=== PATIENT | female | born 1960 | race Hispanic/Latino ===

== ENCOUNTER 2022-12-01 05:30 | Observation (INO) | payer OTHER ==
[2022-11-26 12:36] LABS: BASOPHILS % (AUTO) 1.1 % (0.0-5.0); EOSINOPHILS % (AUTO) 0.8 % (0.0-8.0); HEMATOCRIT 38.1 % (36-48); LYMPHOCYTES % (AUTO) 23.7 % (21.0-51.0); MEAN CORPUSCULAR HEMOGLOBIN 31.1 pg (27.0-33.0); MEAN CORPUSCULAR HGB CONC 33.6 g/dL (32.0-36.0); MEAN CORPUSCULAR VOLUME 92.5 fL (79-99); MONOCYTES % (AUTO) 4.6 % (3.0-13.0); NEUTROPHILS % (AUTO) 69.5 % (40.0-77.0); PLATELET COUNT (AUTO) 224 K/uL (130-400); RED BLOOD CELL COUNT(AUTO) 4.12 MIL/uL (4.00-5.50); RED CELL DISTRIBUTION WIDTH 13.3 % (11.0-15.5); WHITE BLOOD COUNT (AUTO) 3.7 K/uL (4.8-10.8)
[2022-11-26 12:56] LABS: APPEARANCE,URINE CLEAR (CLEAR); BILIRUBIN,URINE NEGATIVE (NEGATIVE); COLOR,URINE COLORLESS (YELLOW); GLUCOSE, URINE (UA) NEGATIVE (NEGATIVE); KETONES,URINE NEGATIVE (NEGATIVE); LEUKOCYTE ESTERASE ,URINE NEGATIVE Leu/uL (NEGATIVE); NITRATE,URINE NEGATIVE (NEGATIVE); PROTEIN,URINE NEGATIVE (NEGATIVE); UROBILINOGEN,URINE 0.2 mg/dL (0.2-1.0)
[2022-11-26 13:06] LABS: BACTERIA,URINE RARE /HPF (None Seen); RBC,URINE 0-1 /HPF (0-1); SQUAMOUS EPITHELIAL CELL,UR RARE /HPF (0-2)
[2022-11-30 09:19] VITALS: BP 143/72
[~2022-12-01] VITALS: Ht 152.4 cm; Wt 62.8 kg
[2022-12-01] VITALS (26 sets, daily range): BP systolic 106–138; BP diastolic 55–75
[~2022-12-01 05:30] MED LIST: PRAV10TA39 PO
[2022-12-01] MEDS ORDERED: 0.9%NACL 1000ML 1,000 ML IV ONE (06:29)
[2022-12-01] MEDS ORDERED: CEFAZOLIN SODIUM 2 GM VIAL ONE (06:29)
[2022-12-01] MEDS ORDERED: FENTANYL CITRATE PF 50 MCG/1 ML 5ML AMP IV ONE (07:45)
[2022-12-01] MEDS ORDERED: MIDAZOLAM HCL 1 MG/ML 2ML VIAL ONE (07:45)
[2022-12-01] MEDS ORDERED: PROPOFOL 10 MG/ML 20ML VIAL IV ONE (07:45)
[2022-12-01] MEDS ORDERED: ROCURONIUM 10MG/1ML SYR 10 MG/ML ML ONE ×2 (07:46→08:32)
[2022-12-01] MEDS ORDERED: ONDANSETRON 4MG INJ ONE (07:59)
[2022-12-01] MEDS ORDERED: EPHEDRINE SULFATE 50 MG/ML AMPULE ONE (08:23)
[2022-12-01] MEDS ORDERED: MEPERIDINE-PF 25 MG/ML SYG ONE ×2 (09:21→10:56)
[2022-12-01] MEDS ORDERED: FENTANYL CITRATE PF 50 MCG/1 ML 2ML VIAL ONE ×2 (09:42→09:54)
[2022-12-01] MEDS ORDERED: NEOSTIGMINE 5MG/5ML SYR IV ONE (09:52)
[2022-12-01] MEDS ORDERED: GLYCOPYRROLATE 1 MG/5 ML SYRINGE ONE (09:52)
[2022-12-01] MEDS ORDERED: LACTATED RINGERS 1000ML 1,000 ML IV ONE (10:49)
[2022-12-01] MEDS ORDERED: IBUPROFEN 600 MG TABLET PO PRN (13:30)
[2022-12-01] MEDS ORDERED: BISACODYL 10 MG SUPP.RECT RC PRN (13:30)
[2022-12-01] MEDS ORDERED: ONDANSETRON 4MG INJ IVP PRN (13:30)
[2022-12-01] MEDS ORDERED: PROMETHAZINE HCL 25 MG/ML 1ML AMPULE IM PRN (13:30)
[2022-12-01] MEDS: PROMETHAZINE HCL 25 MG/ML 1ML AMPULE IM PRN ×2 (13:48→23:34)
[2022-12-01] MEDS: DEXTROSE 5 %-0.45 % NACL 1,000 ML IV SCH ×2 (13:49→18:47)
[2022-12-01] MEDS: MEPERIDINE-PF 75 MG/ML SYG IM PRN ×2 (13:49→23:35)
[2022-12-02] MEDS: DEXTROSE 5 %-0.45 % NACL 1,000 ML IV SCH ×2 (02:45→21:30)
[2022-12-02 03:29] VITALS: BP 115/66
[2022-12-02 06:17] LABS: HEMATOCRIT 31.7 % (36-48); MEAN CORPUSCULAR HEMOGLOBIN 31.3 pg (27.0-33.0); MEAN CORPUSCULAR HGB CONC 33.8 g/dL (32.0-36.0); MEAN CORPUSCULAR VOLUME 92.7 fL (79-99); RED BLOOD CELL COUNT(AUTO) 3.42 MIL/uL (4.00-5.50); RED CELL DISTRIBUTION WIDTH 13.2 % (11.0-15.5); WHITE BLOOD COUNT (AUTO) 8.2 K/uL (4.8-10.8)
[2022-12-02] MEDS: ACETAMINOPHEN WITH CODEINE 1 TAB TAB PO PRN ×2 (06:25→11:52)
[2022-12-02 07:38] VITALS: BP 123/66
[2022-12-02] MEDS ORDERED: HYDROCODONE/ACETAMINOPHEN 5/325 MG TAB PO PRN (08:00)
[2022-12-02] MEDS ORDERED: ACETAMINOPHEN WITH CODEINE 1 TAB TAB PO PRN (08:00)
[2022-12-02] MEDS: DOCUSATE SODIUM 100 MG CAP PO PRN ×2 (08:40→21:00)
[2022-12-02] MEDS: NITROFURANTOIN MONOHYD/M-CRYST 100 MG CAPSULE PO SCH ×2 (08:40→20:34)
[2022-12-02] MEDS: SIMETHICONE 80 MG TAB.CHEW PO PRN ×2 (08:40→21:00)
[2022-12-02] MEDS: IBUPROFEN 800 MG TAB PO PRN ×2 (08:41→16:52)
[2022-12-02 12:11] VITALS: BP 104/62
[2022-12-02 16:18] VITALS: BP 101/59
[2022-12-02 19:26] VITALS: BP 94/58
[2022-12-02 23:03] VITALS: BP 100/57
[2022-12-03 03:56] VITALS: BP 132/75
[2022-12-03] MEDS: DEXTROSE 5 %-0.45 % NACL 1,000 ML IV SCH ×3 (04:59→05:39)
[2022-12-03 07:32] VITALS: BP 114/61
[2022-12-03] MEDS: DOCUSATE SODIUM 100 MG CAP PO PRN (07:55)
[2022-12-03] MEDS: NITROFURANTOIN MONOHYD/M-CRYST 100 MG CAPSULE PO SCH (07:55)
[2022-12-03] MEDS: IBUPROFEN 800 MG TAB PO PRN (07:59)
[2022-12-03] MEDS ORDERED: ACET-2079 PO (09:00)
[2022-12-03] MEDS ORDERED: DOCU-116 PO (09:01)
[2022-12-03] MEDS ORDERED: NITR100C4 PO (09:01)
[2022-12-03] MEDS ORDERED: FERR-72 PO (09:02)
== END 2022-12-03 09:55 | disposition home or self-care (01) ==
LOC: DAH 05:30 → WSH 05:31 → DAH 05:31 → OBSVTOIN 05:31 → INTOOBSV 05:31
PROVIDERS: ADMIT Obstetrics & Gynecology; ATTEND Obstetrics & Gynecology
DX: N81.3 Complete uterovaginal prolapse (principal); Z20.822 Contact with and (suspected) exposure to COVID-19; N39.3 Stress incontinence (female) (male); K46.9 Unspecified abdominal hernia without obstruction or gangrene; E78.5 Hyperlipidemia, unspecified; K21.9 Gastro-esophageal reflux disease without esophagitis; Z79.899 Other long term (current) drug therapy
CPT/HCPCS: 84703; 85025; 86850 ×2; 86900 ×2; 86901 ×2; 86870 ×2; 87426; 81001; 36415 ×3; 58263; 57265; 57288; 96374; 96372; 86922; 88307; 85027; A6260; A4663; J7120 ×2; A4351; A4606; J3010 ×3; J3490 ×2; J2710; J7030; J2550 ×2; J2250; J2704; J2405 ×2; J2175 ×4; J0690; C1771; G0168; A4649; A4215; A4223; A4222; A4221; G0378